=== PATIENT | female | born 1975 | race Caucasian/White ===

== ENCOUNTER → 2017-03-18 | Outpatient (CLI) | payer BC ==
--- NOTE | 2017-03-18 17:43 | WOMENS IMAGING REPORT ---
EXAM DESCRIPTION: 3D SCREENING MAMMO BILAT COMPLETED DATE/TIME: 03/18/2017 8:42 am REASON FOR STUDY: ROUTINE SCREENING; Z12.31 Z12.31 ENCNTR SCREEN MAMMOGRAM FOR MALIGNANT NEOPLASM O F KYLE COMPARISON: 06/15/2011 TECHNIQUE: Standard craniocaudal and mediolateral oblique views of each breast recorded using digita l acquisition and breast tomosynthesis. LIMITATIONS: None. FINDINGS: No masses, calcifications or architectural distortion. No areas of suspicion. Read with the assistance of CAD. .[facility] - R2 Cenova Version 1.3 .[facility] - R2 Cenova Version 1.3 .[facility] - R2 Cenova Version 2.4 .[facility] [place] R2 Cenova Version 2.4 .[facility] - R2 Computer Systems Manager Version 9.2 IMPRESSION: NORMAL MAMMOGRAM. BIRADS 1. BREAST DENSITY: b. There are scattered areas of fibroglandular density. BIRAD: 1 NEGATIVE RECOMMENDATION: ROUTINE SCREENING Please continue yearly bilateral screening tomosynthesis in March 2018. COMMENT: The patient has been notified of the results by letter per SA requirements. Additional no tification policies are in place for contacting patient with suspicious or incomplete findings. Quality ID #[id number]: The [employer] recommends an annual screening mammogram for women aged 40 years or over. This facility utilizes a reminder system to ensure that all patients receive reminder letters, and/or direct phone calls for appointments. This includes reminders for routine scr eening mammograms, diagnostic mammograms, or other Breast Imaging Interventions when appropriate. Th is patient will be placed in the appropriate reminder system. The [employer] (ACR) has developed recommendations for screening MRI of the breast s in certain patient populations, to be used in conjunction with mammography. Breast MRI surveillanc e may be appropriate for women with more than 20% lifetime risk of developing breast cancer as deter mined by genetic testing, significant family history of the disease, or history of mantle radiation f or Hodgkins Disease. ACR Practice Guidelines 2008. DBT Technology DBT is a type of tomographic mammography. With conventional mammography, overlapping breast tissue ma y make lesions difficult to detect, even with good compression. DBT uses an x-ray tube that rotates a round the breast, taking images at different angles. These images are then combined to create thin sl ices of the breast that the radiologist can view as a 3D reconstruction. The [employer] unit can perform full-field digital mammograms (2D imaging); or DBT (3D imaging); or both, in a combination mode that quickly performs both the mammogram and the tomosynthesis scan while the breast is still compressed. PQRS 6045F: Fluoroscopic imaging is not utilized for breast tomosynthesis. TECHNICAL DOCUMENTATION: FINDING NUMBER: (1) ASSESSMENT: (1) JOB ID: [id number] [employer]- All Rights Reserved
== END ==
LOC: WI 08:12
PROVIDERS: ATTEND Registered Nurse General Practice
DX: Z12.31 Encounter for screening mammogram for malignant neoplasm of breast (principal)
CPT/HCPCS: 77063; G0202; 77067

== ENCOUNTER 2018-05-05 10:33 | Emergency (ER) | payer BC ==
--- NOTE | 2018-05-05 11:13 | ER Document Report ---
ED Medical Screen (RME) - General Chief Complaint: Flank Pain Stated Complaint: BACK PAIN Time Seen by Provider: 05/05/18 11:09 Notes: 43-year-old female patient with 3-day history of right lower flank pain which is been radiating toward the her right lower abdomen. There is no history of injury or strain. There is no prior history of kidney stones. There is no dysuria, foul odor to urine, or fever. There is an area in the mid to lateral lumbar region at the top of the iliac bone which is tender to palpate. There is no rash seen. I have greeted and performed a rapid initial assessment of this patient. A comprehensive ED assessment and evaluation of the patient, analysis of test results and completion of the medical decision making process will be conducted by additional ED providers. TRAVEL OUTSIDE OF THE [place] IN LAST 30 DAYS: No - Related Data Allergies/Adverse Reactions: No Known Allergies Allergy (Verified 03/20/13 23:13) Past Medical History - Social History Chew tobacco use (# tins/day): No Frequency of alcohol use: None Family history: Reviewed & Not Pertinent Renal/ Medical History: Denies: Hx Peritoneal Dialysis Past Surgical History: Reports: Hx Orthopedic Surgery - carpal tunnel - Immunizations Hx Diphtheria, Pertussis, Tetanus Vaccination: Yes Physical Exam - Vital signs Vitals: Temp Pulse Resp BP Pulse Ox 97.7 F 71 16 131/89 H 100 05/05/18 10:38 05/05/18 10:38 05/05/18 10:38 05/05/18 10:38 05/05/18 10:38 Course - Vital Signs Vital signs: Temp Pulse Resp BP Pulse Ox 97.7 F 71 16 131/89 H 100 05/05/18 10:38 05/05/18 10:38 05/05/18 10:38 05/05/18 10:38 05/05/18 10:38 Doctor's Discharge - Discharge Referrals: LIANET MCNEAL NP [Primary Care Provider] - Follow up as needed
[2018-05-05 11:35] LABS: APPEARANCE,URINE CLEAR; BILIRUBIN,URINE NEGATIVE (NEGATIVE); COLOR,URINE STRAW; GLUCOSE, URINE NEGATIVE (NEGATIVE); KETONES,URINE NEGATIVE (NEGATIVE); LEUKOCYTE ESTERASE,URINE NEGATIVE (NEGATIVE); NITRITE,URINE NEGATIVE (NEGATIVE); PROTEIN,URINE NEGATIVE (NEGATIVE); URINE SPECIFIC GRAVITY 1.009; UROBILINOGEN,URINE NEGATIVE mg/dL (<2.0)
--- NOTE | 2018-05-05 11:43 | ER Document Report ---
ED GI/ - General Mode of Arrival: Ambulatory Information source: Patient TRAVEL OUTSIDE OF THE [place] IN LAST 30 DAYS: No <POWER CASSIDY - Last Filed: 05/05/18 14:51> <MADHURI POLANCO - Last Filed: 05/05/18 15:00> - General Chief Complaint: Flank Pain Stated Complaint: BACK PAIN Time Seen by Provider: 05/05/18 11:09 Notes: 43-year-old female who presents to the emergency department today with complaints of right sided low back pain that radiates to the front which began 2 days ago. Patient states she noticed a sharp pain when walking when her pain began. Patient states her pain seems to be the worst when trying to get out of bed in the morning; stating "the first few steps are the worst". Patient denies any numbness, tingling, urinary or fecal incontinence, dysuria, saddle anesthesia, hematuria, recent heavy lifting, or recent trauma to the area. ( POWER CASSIDY) - Related Data Allergies/Adverse Reactions: No Known Allergies Allergy (Verified 03/20/13 23:13) Past Medical History - General Information source: Patient - Social History Smoking Status: Never Smoker Cigarette use (# per day): No Chew tobacco use (# tins/day): No Frequency of alcohol use: None Patient has suicidal ideation: No Patient has homicidal ideation: No Renal/ Medical History: Denies: Hx Peritoneal Dialysis Past Surgical History: Reports: Hx Orthopedic Surgery - carpal tunnel - Immunizations Hx Diphtheria, Pertussis, Tetanus Vaccination: Yes <POWER CASSIDY - Last Filed: 05/05/18 14:51> - Social History Family History: Reviewed & Not Pertinent <MADHURI POLANCO - Last Filed: 05/05/18 15:00> Review of Systems - Review of Systems Constitutional: No symptoms reported EENT: No symptoms reported Cardiovascular: No symptoms reported Respiratory: No symptoms reported Gastrointestinal: No symptoms reported Genitourinary: denies: Dysuria Female Genitourinary: No symptoms reported Musculoskeletal: See HPI, Back pain Skin: No symptoms reported Hematologic/Lymphatic: No symptoms reported Neurological/Psychological: denies: Numbness, Tingling -: Yes All other systems reviewed and negative <POWER CASSIDY - Last Filed: 05/05/18 14:51> Physical Exam <POWER CASSIDY - Last Filed: 05/05/18 14:51> <MADHURI POLANCO - Last Filed: 05/05/18 15:00> - Vital signs Vitals: Temp Pulse Resp BP Pulse Ox 97.7 F 71 16 131/89 H 100 05/05/18 10:38 05/05/18 10:38 05/05/18 10:38 05/05/18 10:38 05/05/18 10:38 - Notes Notes: PHYSICAL EXAM GENERAL: Alert, interacts well. No acute distress. HEAD: Normocephalic, atraumatic. EYES: Pupils equal, round, and reactive to light. Extraocular movements intact. ENT: Oral mucosa moist, tongue midline. NECK: Full range of motion. Supple. Trachea midline. LUNGS: Clear to auscultation bilaterally, no wheezes, rales, or rhonchi. No respiratory distress. HEART: Regular rate and rhythm. No murmurs, gallops, or rubs. ABDOMEN: Soft, non-tender. Non-distended. Bowel sounds present in all 4 quadrants. No guarding, rigidity, or rebound. EXTREMITIES: Moves all 4 extremities spontaneously. No edema, radial and dorsalis pedis pulses 2/4 bilaterally. No cyanosis. BACK: Non-tender, no midline bony tenderness with palpation, no step-offs or deformity, no reproducible right low back tenderness. No CVA tenderness to percussion. Negative straight leg raise bilaterally. Complains of slight pain when sitting up from a supine position. NEUROLOGICAL: Alert and oriented x3. Normal speech. Patellar DTRs 2+ bilaterally. Great toe raising strength 5/5 bilaterally. PSYCH: Normal affect, normal mood. SKIN: Warm, dry, normal turgor. No rashes or lesions noted. (POWER CASSIDY) Course <ANGE,POWER - Last Filed: 05/05/18 14:51> <MADHURI POLANCO - Last Filed: 05/05/18 15:00> - Re-evaluation Re-evalutation: 05/05/18 11:47 Urinalysis shows moderate blood but only 1 RBC. The patient is on her menstrual cycle at this time. Patient was offered the options of having a catheterized urine performed to see if there is truly any blood or if this is just contamination from her menstrual cycle, having a CAT scan performed to look for a right-sided kidney stone causing her back pain or simply proceeding with treatment for a muscle spasm using anti-inflammatories and muscle relaxers and returning should her pain get worse. Patient has decided to forego the urinary catheterization and the CAT scan and simply be treated for muscle spasm. I do feel like it is more likely that this patient has muscle spasm than a kidney stone as there is only 1 RBC, she is on her menstrual cycle and her pain is reproducible and located in the paraspinal musculature at the thoracolumbar junction. (MADHURI POLANCO) - Vital Signs Vital signs: Temp Pulse Resp BP Pulse Ox 98.1 F 75 16 108/72 98 05/05/18 12:06 05/05/18 12:06 05/05/18 12:06 05/05/18 12:06 05/05/18 12:06 - Laboratory Laboratory results interpreted by me: 05/05/18 11:16 Urine Blood MODERATE H Discharge <POWER CASSIDY - Last Filed: 05/05/18 14:51> <MADHURI POLANCO - Last Filed: 05/05/18 15:00> - Discharge Clinical Impression: Lumbar paraspinal muscle spasm Condition: Stable Disposition: HOME, SELF-CARE Additional Instructions: Low Back Pain Three out of every four people will have an episode of disabling back pain during their lifetime. Most commonly the pain is due to straining of the muscles and ligaments in the low back. Usual treatment includes: (1) Rest on a firm surface. Avoid lying on your stomach. (2) Ice pack the painful area. After a few days, gentle heat may be used intermittently to relax the area, or ice packs can be continued. (3) Medication may be needed -- muscle relaxers and antiinflammatory medicines are commonly used. (4) As the back improves, exercises are prescribed to strengthen the back and abdominal muscles. Your doctor will advise you on the proper care for your back at each stage in your recovery. You may be better in a few days -- or healing may take several weeks. If new symptoms of a "herniated disc" (radiation of pain, numbness, or tingling down the back of the leg or weakness in the leg) occur, you should be re-examined. Further testing may be necessary. Please use ibuprofen (Motrin or Advil) 600-800 mg every 8 hours as needed for pain or fever. You may also use acetaminophen (Tylenol) 1000 mg every 4-6 hours as needed for pain or fever. Please be aware that many medications contain acetaminophen, do not exceed a total of 1000 mg of acetaminophen every 6 hours. If your pain worsen significantly, you develop any fevers, any numbness or tingling, inability to control your bowels or bladder or any new or concerning symptoms please return to the emergency department. Prescriptions: Methocarbamol [Robaxin 750 mg Tablet] 750 mg PO ASDIR PRN #40 tablet PRN Reason: Referrals: LIANET MCNEAL CITRUS PEELER [Primary Care Provider] - Follow up as needed Scribe Attestation: 05/05/18 15:00 I personally performed the services described in the documentation, reviewed and edited the documentation which was dictated to the scribe in my presence, and it accurately records my words and actions. (MADHURI POLANCO) Scribe Documentation - Scribe Written by Bonnie:: Bonnie Madera, 05/05/2018 1342 acting as scribe for :: Alvarado <POWER CASSIDY - Last Filed: 05/05/18 14:51>
[2018-05-05 12:07] VITALS: BP 108/72
== END 2018-05-05 12:06 | disposition home or self-care (01) ==
LOC: ER 10:33
DX: M62.830 Muscle spasm of back (principal); M54.5 Low back pain; R10.9 Unspecified abdominal pain; M54.9 Dorsalgia, unspecified
CPT/HCPCS: 81001; 81025; 99284